=== PATIENT | female | born 1985 | race Two or more races ===

== ENCOUNTER 2018-10-26 03:38 | Inpatient (IN) | payer OTHER ==
[~2018-10-26] VITALS: Ht 170.2 cm; Wt 88.9 kg
== END 2018-10-28 13:37 | DRG 807 ==
LOC: LDR 03:38 → OB/GYN 03:38
PROVIDERS: ADMIT Obstetrics & Gynecology
PROC: 10E0XZZ Delivery of Products of Conception, External Approach (ICD-10-PCS; principal; 2018-10-26)
PROC: 4A1HXCZ Monitoring of Products of Conception, Cardiac Rate, External Approach (ICD-10-PCS; 2018-10-26)
PROC: 0HQ9XZZ Repair Perineum Skin, External Approach (ICD-10-PCS; 2018-10-26)
DX: O70.0 First degree perineal laceration during delivery (principal); Z37.0 Single live birth; Z3A.38 38 weeks gestation of pregnancy